=== PATIENT | male | born 1975 | race Caucasian/White ===

== ENCOUNTER 2018-03-05 08:48 | Emergency (ER) | payer OTHER, SELFPAY ==
[2018-03-05] VITALS (44 sets, daily range): BP systolic 117–145; BP diastolic 69–85; PULSE 49–75; RESP 9–32; TEMP 37; O2SAT 90–99
--- NOTE | 2018-03-05 09:14 | DI.RAD_ITS ---
SYMPTOM/DIAGNOSIS: NUMBNESS/TINGLING EXTREMITIES, R/O ACUTE DISEASE PA AND LATERAL CHEST: 03/05 The heart is normal in size. The lungs are clear. The mediastinal structures and pleura appear intact. CONCLUSION: Normal chest.
--- NOTE | 2018-03-05 09:14 | DI.CT_ITS ---
SYMPTOM/DIAGNOSIS: B/L HANDS/TOES TINGLING, R/O ACUTE CVA CRANIAL CT: NONCONTRAST 03/05 The previously described small right frontal lobe infarct again seen. The previously noted left posterior fossa, hemorrhage noted on previous examination is no longer present. Small lacunar infarct present on the right. No evidence of acute intracranial hemorrhage, mass effect or midline shift. CONCLUSION: No evidence of acute intracranial process.
--- NOTE | 2018-03-05 09:16 | W.ED.GENAD ---
Discharge Plan Disposition Patient Disposition: HOME Condition: Stable Discharge Details Chief Complaint: CVA/TIA Clinical Impression: Paresthesia Reason For Visit: LUKAS Primary Care Provider: Mariya Holm ED Provider: Maye Tenorio Home Meds and New Rx's Prescriptions: Continue aspirin 81 MG tablet,chewable 81 mg PO DAILY RF: 0 metoprolol tartrate 50 MG tablet 50 mg PO BID Qty: 180 RF: 5 lisinopril 40 MG tablet 40 mg PO DAILY Qty: 90 RF: 4 sertraline 25 MG tablet 25 mg PO DAILY Qty: 90 RF: 3 naphazoline-pheniramine [Naphcon-A] 15 ML drops 2 drp Ophthalmic TID Qty: 1 RF: 0 amlodipine 10 MG tablet 10 mg PO BID MDD 20 Qty: 90 RF: 4 atorvastatin 20 mg tablet 20 mg PO DAILY Qty: 90 RF: 3 omega-3 fatty acids-fish oil 1 EACH capsule 500 mg PO BID RF: 0 ibuprofen 600 MG tablet 600 mg PO Q6H PRN (Reason: Pain) Qty: 12 RF: 0 Discharge Instructions Instructions: Vertigo (ED), Paresthesia (ED) Additional Instructions: Follow-up with your scheduled appointment with neurology tomorrow afternoon. Return to the emergency department with any worsening or new concerning symptoms. Discharge Data Discharge Date/Time-TO BE ENTERED AT DEPARTURE: 03/05/18 14:54 Discharge Physician: Maye Tenorio Medical Decision Making 42-year-old male with a history of HTN and previous hemorrhagic stroke 2 years ago who presents to the ED with a complaint of bilateral hand and foot numbness and tingling for the past 3 weeks. Patient was seen at [facility] ED 2 days ago for same and had negative CT head was discharged home. He has follow-up appointment with neurologist Dr. Sukhwinder Moreira at [facility] tomorrow. He is here today mainly with concern for possible hemorrhagic stroke again. Vitals within normal limits. Nontoxic and in no acute distress. He has altered sensation to discriminate between sharp and dull in distal b/l upper and lower extremities but otherwise intact to light touch. No focal motor deficits. No cerebellar signs. As patient has already been seen 2 days ago at the ED for same complaint, symptoms have been present for 3 weeks, normal vitals, symptoms bilateral, no obvious focal motor deficits on exam, I am less concerned about an acute neurological process. Will obtain a CT head and labs to rule out electrolyte ab normality. Discussed with patient that the best plan would be for follow-up with neurology tomorrow for further evaluation and consideration for MRI. Differential diagnosis can include MS, vitamin deficiencies, other chronic diseases such as thyroid disease, hormonal imbalances. Patient states he had a previous MRI 2 years ago after his hemorrhagic stroke. 1025 -- CT head negative for acute findings. Does note prominence of basilar artery with calcification, and recommend CTA not emergently to evaluate for basilar artery aneurysm. Due to patient's current complaint, will obtain CTA head and neck. 1325 --CTA head and neck negative. Labs reviewed and note a potassium of 3, given potassium repletion. Remainder of labs unremarkable. Patient able to ambulate in room and feels good to go home. Patient instructed to follow-up with his scheduled appointment with neurology tomorrow afternoon for further evaluation and possible additional imaging such as MRI. Instructed to return here with any concerns. HPI General Mode of arrival: EMS. Date/Time Provider Initiated Documentation: 03/05/18 08:57. Limitations to Documentation: no limitations. Information obtained by: patient. Related Data Home Medications Medication Instructions Recorded Confirmed aspirin 81 mg PO DAILY tab-cap 02/02/16 03/05/18 omega-3 fatty acids-fish oil 500 mg PO BID 08/09/16 03/05/18 metoprolol tartrate 50 mg PO BID #180 tab-cap 09/22/16 03/05/18 ibuprofen 600 mg PO Q6H PRN #12 tablet 10/25/16 03/05/18 lisinopril 40 mg PO DAILY #90 tab 01/04/17 03/05/18 sertraline 25 mg PO DAILY #90 cap 09/05/17 03/05/18 naphazoline-pheniramine [Naphcon-A] 2 drp OPHTHALMIC TID #1 bottle 10/31/17 03/05/18 amlodipine 10 mg PO BID #90 tab-cap MDD 20 11/16/17 atorvastatin 20 mg tablet 20 mg PO DAILY #90 tab 01/31/18 03/05/18 Previous Rx's Medication Instructions Recorded ibuprofen 600 mg PO Q6H PRN #12 tablet 10/25/16 lisinopril 40 mg PO DAILY #90 tab 01/04/17 sertraline 25 mg PO DAILY #90 cap 09/05/17 naphazoline-pheniramine [Naphcon-A] 2 drp OPHTHALMIC TID #1 bottle 10/31/17 amlodipine 10 mg PO BID #90 tab-cap MDD 20 11/16/17 atorvastatin 20 mg tablet 20 mg PO DAILY #90 tab 01/31/18 Allergies Allergy/AdvReac Type Severity Reaction Status Date / Time No Known Allergies Allergy Unverified 03/05/18 08:56 General Stated Complaint: CVA/TIA EYAD: 2 Review of Systems Review of Systems All systems reviewed & are unremarkable except as noted in HPI and below Constitutional Denies chills, Denies excessive sweating, Denies fatigue, Denies fever(s), Denies headache(s), Denies weakness and Denies weight loss Eyes Reports system reviewed and no additional complaints, except as docu and Denies blurry vision ENT Denies vertigo, Denies dizziness, Denies otalgia, Denies headache(s), Denies nasal congestion, Denies sore throat and Denies throat swelling Cardiovascular Denies chest pain, Denies syncope, Denies rapid heart rate and Denies dyspnea Respiratory Denies dyspnea Gastrointestinal Denies abdominal pain, Denies diarrhea and Denies vomiting Genitourinary Denies hematuria, Denies dysuria and Denies flank pain Musculoskeletal Denies back pain, Denies joint swelling and Reports tingling Integumentary/Breasts Denies lesions and Denies rash Neurologic Reports abnormal speech, Denies behavioral changes, Denies confusion, Denies vertigo, Denies dizziness, Denies syncope, Denies headache(s), Denies focal weakness, Reports tingling, Reports paresthesias and Denies weakness Psychiatric Denies behavioral changes, Denies confusion and Denies depression Endocrine Denies excessive sweating and Denies fatigue Hematologic/Lymphatic Denies easy bruising and Denies lymphadenopathy Allergic/Immunologic Denies throat swelling [facility] Social History Smoking/Tobacco Use Status: Never Exam Const General: cooperative and healthy appearing Orientation: alert and awake HENMT Head: normal to inspection Ears: hearing grossly normal bilaterally, external ears normal and TM's normal bilaterally General nose exam: external nose normal Face and sinus: normal facial exam Mouth: oral mucosae normal Teeth and gingiva: dentition normal Eyes General: appearance normal, both eyes and all related structures Eyelids: eyelids normal Pupils: PERRL EOM: EOM intact bilaterally Neck Neck: normal visual inspection Lymphatic: no lymphadenopathy noted Chest Chest: normal inspection of the chest Resp Effort & Inspection: normal respiratory effort and able to speak in complete sentences Auscultation: clear to auscultation bilaterally Cardio Rate: regular rate Rhythm: regular rhythm GI Inspection: normal to inspection Palpation: soft, not firm, no guarding, no hepatosplenomegaly, no masses and nontender Auscultation: normal bowel sounds Back/Spine/Pelvis Thoracic/Lumbar Spine: thoracic and lumbar spine normal to inspection Skin General skin exam: no rashes or lesions noted Neuro General: alert, awake and oriented x3 Cognition: normal cognition Speech: speech normal Motor: muscle tone normal throughout, strength 5/5 throughout and no pronator drift Sensory Exam: other (Sensation normal to light touch but not able to distinguish between sharp and dull in fingers/toes. Able to distinguish between sharp and dull on remainder of hands/feet/legs/forearms. ) Extrem General: normal to inspection, full ROM, normal capillary refill, no clubbing, no cyanosis, no edema and other (b/l radial/ulnar pulses/DP/PT pulses intact. ) Psych Appearance: grossly normal Mental Status: mental status grossly normal Speech and Movement: speech and movement normal Affect: normal affect Thought Process: normal Course Vital Signs Temperature 98.6 F 03/05/18 08:49 Pulse 75 03/05/18 08:49 Respiratory Rate 19 03/05/18 08:49 Blood Pressure 132/74 03/05/18 08:49 Pulse Oximetry 98 03/05/18 08:49 Temperature 98.6 F 03/05/18 08:49 Temperature Source Temporal Artery Scan 03/05/18 08:49 Pulse 75 03/05/18 08:49 Respiratory Rate 19 03/05/18 08:49 Respiratory Effort Non-Labored 03/05/18 08:54 Blood Pressure 132/74 03/05/18 08:49 Pulse Oximetry 98 03/05/18 08:49 Oxygen Delivery Method Room Air 03/05/18 08:49 Oxygen Flow Rate 0 03/05/18 08:49 Pain Level 0 03/05/18 08:49
[2018-03-05 09:28] LABS: Abs Immature Grans 0.01 k/cumm (0.0-0.09); Absolute Basophil Count 0.02 k/cumm (0.0-0.2); Absolute Eosinophil Count 0.11 k/cumm (0.0-0.7); Absolute Lymphocyte Count 1.11 k/cumm (1.2-3.4); Absolute Monocyte Count 0.37 k/cumm (0.11-0.7); Absolute Neutrophil Count 5.02 k/cumm (1.2-6.7); Basophils % 0.3; Eosinophils % 1.7; HGB 14.8 g/dL (13.5-17.5); Immature Grans % 0.2; Lymphocytes % 16.7; Mean Corp. HGB Concentration 35.2 g/dL (32.0-36.0); Mean Corpuscular Hemoglobin 30.1 pg (27.0-33.0); Mean Corpuscular Volume 85.4 fL (80-95); Mean Platelet Volume 11.5 fL (8.0-11.0); Monocytes % 5.6; Neutrophils % 75.5; Platelet Count 152 x1000/uL (130-400); RBC 4.92 m/cumm (4.50-6.00); RBC Distribution Width 12.8 % (11.8-14.1); White Blood Cell Count 6.64 k/cumm (4.4-10.8)
[2018-03-05 09:41] LABS: INR 1.1 (1.0-3.5); PTT Activated 25.1 sec (21.0-31.4); Prothrombin Time 10.4 sec (9.3-10.8)
[2018-03-05 09:48] LABS: ALT 65 U/L (12-78); AST 38 U/L (15-37); Albumin 4.3 g/dL (3.4-5.0); Alkaline Phosphatase 114 U/L (46-116); Anion Gap 11.1 mmol/L (3-11); BUN 17 mg/dL (7-18); CO2 27.9 mmol/L (21.0-32.0); Chloride 105 mmol/L (98-107); Glucose 134 mg/dL (70-100); Sodium 144 mmol/L (136-145); Total Protein 7.7 g/dL (6.4-8.2); Troponin I < 0.02 ng/mL (0.00-0.06)
--- NOTE | 2018-03-05 10:24 | DI.VRAD_ITS ---
EXAM: CT Head Without Intravenous Contrast EXAM DATE/TIME: 03/05/2018 9:16 AM CLINICAL HISTORY: 42 years old, male; Signs and symptoms; Other: B/l hands and toes tingling, R/O acute CVA; Patient HX: HX stroke 2yrs ago TECHNIQUE: Axial computed tomography images of the head/brain without intravenous contrast. Coronal and sagittal reformatted images were created and reviewed. COMPARISON: CT HEAD WITHOUT STROKE PROTOCOL 08/09/2016 12:58 PM FINDINGS: Brain: No acute intracranial hemorrhage. Minimal encephalomalacia in the right frontal region was present on the prior study and may reflect a prior infarction. Ventricles: Normal. No ventriculomegaly. Bones/joints: Normal. No acute fracture. Sinuses: Normal as visualized. No acute sinusitis. Mastoid air cells: Normal as visualized. No mastoid effusion. Soft tissues: Normal. Vasculature: Basilar artery is prominent measuring 5.6 mm and contains a calcification. This was present previously; recommend CTA non-emergently to evaluate for basilar artery aneurysm if clinically indicated.. IMPRESSION: 1. No acute intracranial hemorrhage. 2. Minimal encephalomalacia in the right frontal region was present on the prior study and may reflect a prior infarction. 3. Aspect score 10 4. Basilar artery is prominent measuring 5.6 mm and contains a calcification. This was present previously; recommend CTA non-emergently to evaluate for basilar artery aneurysm if clinically indicated Dictated and Authenticated by: Sarah Correa MD. Ordering:RACHEL CAMERON MD
--- NOTE | 2018-03-05 10:29 | DI.CT_ITS ---
SYMPTOM/DIAGNOSIS: BASILAR ARTERY CALCIFICATION, ASSESS FOR ANEURYSM CT ANGIOGRAPHY, CRANIOCERVICAL : 03/05 CT angiography was performed with multi slice acquisition and multi planar and 3D reconstruction. CT angiography of the craniocervical region was performed. 100 cc Omnipaque 350 was injected intravenously. The visualized lung apices are clear and tracheolaryngeal structures appear intact. No cervical mass or adenopathy is seen. No superior mediastinal mass or adenopathy. No intracranial mass lesion or enhancing lesion identified. Orbital and temporal bone structures appear intact. Aortic arch and major branches appear intact. Common internal and external carotid arteries are unremarkable in appearance bilaterally in their extracranial extent. Vertebral arteries appear intact and there are extracranial extent with right dominant vertebral circulation. Basal artery appears normal with no evidence of aneurysm. Intracranial internal carotid arteries appear normal with no evidence of dissection or aneurysm. Anterior cerebral arteries, middle cerebral arteries and posterior cerebral arteries and major branches appear intact bilaterally. CONCLUSION: Negative CT angiography, craniocervical.
--- NOTE | 2018-03-05 10:33 | DI.VRAD_ITS ---
EXAM: XR Chest, 2 Views EXAM DATE/TIME: 03/05/2018 9:16 AM CLINICAL HISTORY: 42 years old, male; Signs and symptoms; Other: Numbness/tingling extremities, R/O acute disease TECHNIQUE: XR of the chest, 2 views. COMPARISON: CR CHEST 2 VIEWS PA,LAT 07/16/2017 3:31 PM FINDINGS: Lungs: Unremarkable. No consolidation. Pleural space: Unremarkable. No pleural effusion. No pneumothorax. Heart/Mediastinum: Unremarkable. No cardiomegaly. Bones/joints: Unremarkable. IMPRESSION: No acute findings. Dictated and Authenticated by: Sarah Correa MD. Ordering:RACHEL CAMERON MD
[2018-03-05] MEDS: Potassium Chloride 20 MEQ TABCR 40 MEQ PO (12:05)
--- NOTE | 2018-03-05 13:00 | DI.VRAD_ITS ---
EXAM: CT Angiography Head With Intravenous Contrast EXAM DATE/TIME: 03/05/2018 10:30 AM CLINICAL HISTORY: 42 years old, male; Signs and symptoms; Other: Basilar artery calcifcation /asses for aneurysm; Patient HX: Past stroke TECHNIQUE: Axial computed tomographic angiography images of the head with intravenous contrast using CT angiography protocol. All CT scans at this facility use at least one of these dose optimization techniques: automated exposure control; mA and/or kV adjustment per patient size (includes targeted exams where dose is matched to clinical indication); or iterative reconstruction. MIP reconstructed images were created and reviewed. COMPARISON: Noncontrast CT head 03/05/2018. CTA BRAIN AND NECK 10/20/2015. FINDINGS: Right internal carotid artery: Unremarkable. Intracranial segment is patent with no significant stenosis. No aneurysm. Right anterior cerebral artery: Unremarkable. No occlusion or significant stenosis. No aneurysm. Right middle cerebral artery: Unremarkable. No occlusion or significant stenosis. No aneurysm. Right posterior cerebral artery: Unremarkable. No occlusion or significant stenosis. No aneurysm. Right vertebral artery: Intracranial right vertebral artery is dominant in size with calcification, but no stenosis. No dissection or occlusion. Left internal carotid artery: Unremarkable. Intracranial segment is patent with no significant stenosis. No aneurysm. Left anterior cerebral artery: Unremarkable. No occlusion or significant stenosis. No aneurysm. Left middle cerebral artery: Unremarkable. No occlusion or significant stenosis. No aneurysm. Left posterior cerebral artery: Unremarkable. No occlusion or significant stenosis. No aneurysm. Left vertebral artery: Intracranial left vertebral artery is diminutive in size, but patent and joins with the left vertebral artery to form the basilar artery. No dissection or occlusion. Basilar artery: Basilar artery is normal in size and patent. No stenosis. No aneurysm. HEAD: Left CP angle mass previously seen on the comparison 10/20/2015 exam is not visible on the current exam. IMPRESSION: 1. Negative CTA head exam. 2. No aneurysm. EXAM: CT Angiography Neck With Intravenous Contrast EXAM DATE/TIME: 03/05/2018 10:30 AM CLINICAL HISTORY: 42 years old, male; Signs and symptoms; Other: Basilar artery calcifcation /asses for aneurysm; Patient HX: Past stroke TECHNIQUE: Axial computed tomographic angiography images of the neck with intravenous contrast using CT angiography protocol. All CT scans at this facility use at least one of these dose optimization techniques: automated exposure control; mA and/or kV adjustment per patient size (includes targeted exams where dose is matched to clinical indication); or iterative reconstruction. MIP reconstructed images were created and reviewed. CONTRAST: 100 ml of ominpaque administered intravenously. COMPARISON: CTA BRAIN AND NECK 10/20/2015 3:36 AM FINDINGS: VASCULATURE: Right common carotid artery: Unremarkable. No significant stenosis. No dissection or occlusion. Right internal carotid artery: Unremarkable. Extracranial segment is patent with no significant stenosis. No dissection or occlusion. Right external carotid artery: Unremarkable. No occlusion or significant stenosis. Right vertebral artery: Normal variant dominant right vertebral artery. Left common carotid artery: Unremarkable. No significant stenosis. No dissection or occlusion. Left internal carotid artery: Unremarkable. Extracranial segment is patent with no significant stenosis. No dissection or occlusion. Left external carotid artery: Unremarkable. No occlusion or significant stenosis. Left vertebral artery: Congenitally diffuse small vertebral artery. No significant stenosis. No dissection or occlusion. NECK: Bones/joints: No acute fracture. Soft tissues: Normal. No significant soft tissue swelling. IMPRESSION: Negative CTA neck exam. COMMENT: Degree of carotid stenosis was determined using NASCET criteria: Mild: <50% stenosis. Moderate: 50-69% stenosis. Severe: 70-94% stenosis. Near occlusion: 95-99% stenosis. Dictated and Authenticated by: Tabitha Bacon MD. Ordering:RACHEL CAMERON MD
[2018-03-05] MEDS: Omnipaque 350 MG/ML 100 ML BTL IJ (13:34)
== END 2018-03-05 14:54 | disposition home or self-care (01) ==
PROVIDERS: Emergency Provider Physician Assistant; PCP Internal Medicine
DX: R20.2 Paresthesia of skin (principal); E87.6 Hypokalemia; I10 Essential (primary) hypertension
CPT/HCPCS: 36415; 70496; 70498; 80053; 93005; 99285; 70450; 71046; 83735; 84484; 85025; 85610; 85730; 93010; 99284; J3490

== ENCOUNTER 2018-05-01 11:41 | Outpatient (CLI) | payer OTHER, SELFPAY ==
[2018-05-01 13:03] LABS: Abs Immature Grans 0.03 k/cumm (0.0-0.09); Absolute Basophil Count 0.03 k/cumm (0.0-0.2); Absolute Eosinophil Count 0.13 k/cumm (0.0-0.7); Absolute Lymphocyte Count 1.33 k/cumm (1.2-3.4); Absolute Neutrophil Count 4.87 k/cumm (1.2-6.7); Basophils % 0.4; Eosinophils % 1.9; HCT 43.2 % (40.0-50.0); HGB 14.9 g/dL (13.5-17.5); Immature Grans % 0.4; Lymphocytes % 19.6; Mean Corp. HGB Concentration 34.5 g/dL (32.0-36.0); Mean Corpuscular Hemoglobin 29.9 pg (27.0-33.0); Mean Corpuscular Volume 86.7 fL (80-95); Mean Platelet Volume 11.1 fL (8.0-11.0); Monocytes % 5.9; Neutrophils % 71.8; Platelet Count 168 x1000/uL (130-400); RBC 4.98 m/cumm (4.50-6.00); RBC Distribution Width 13.5 % (11.8-14.1); White Blood Cell Count 6.79 k/cumm (4.4-10.8)
[2018-05-01 13:27] LABS: ALT 59 U/L (12-78); AST 54 U/L (15-37); Albumin 4.4 g/dL (3.4-5.0); Alkaline Phosphatase 133 U/L (46-116); Anion Gap 8.1 mmol/L (3-11); BUN 19 mg/dL (7-18); Bilirubin, Total 0.7 mg/dL (0.2-1.0); CO2 30.9 mmol/L (21.0-32.0); CREATININE 1.23 mg/dL (0.70-1.30); Calcium 9.9 mg/dL (8.5-10.1); Chloride 106 mmol/L (98-107); Glucose 110 mg/dL (70-100); Potassium 3.8 mmol/L (3.5-5.1); Sodium 145 mmol/L (136-145); Total Protein 7.6 g/dL (6.4-8.2)
[2018-05-01 13:33] LABS: Hemoglobin A1C 5.6 % (4.5-6.2)
== END 2018-05-01 12:01 ==
PROVIDERS: PCP Internal Medicine; Visit Provider Internal Medicine
DX: I10 Essential (primary) hypertension (principal)
CPT/HCPCS: 36415; 80053; 83036; 85025

== ENCOUNTER 2018-10-18 19:26 | Emergency (ER) | payer OTHER, SELFPAY ==
[2018-10-18 19:35] VITALS: BP 160/68; PULSE 106; RESP 18; TEMP 38.7; O2SAT 96
--- NOTE | 2018-10-18 20:00 | ED.GENADUL_ITS ---
Discharge Plan Disposition Patient Disposition: HOME Condition: Improving Discharge Details Chief Complaint: Cellulitis Clinical Impression: Cellulitis of left lower leg Primary Care Provider: Mariya Holm ED Provider: Drake Flood Home Meds and New Rx's Prescriptions: New cephalexin 500 mg tablet 500 mg PO QID 7 Days Qty: 28 RF: 0 potassium chloride 20 mEq tablet extended release 20 meq PO DAILY Qty: 4 RF: 0 Continued sertraline 100 mg tablet 100 mg PO DAILY RF: 0 lamotrigine 100 mg tablet 100 mg PO DAILY RF: 0 aspirin 81 MG tablet,chewable 81 mg PO DAILY RF: 0 Naphcon-A 15 ML drops 2 drp Ophthalmic TID Qty: 1 RF: 0 atorvastatin 20 mg tablet 20 mg PO DAILY Qty: 90 RF: 3 lisinopril 40 mg tablet 40 mg PO DAILY Qty: 90 RF: 4 amlodipine 10 mg tablet 10 mg PO BID MDD 20 Qty: 90 RF: 4 metoprolol tartrate 50 mg tablet 50 mg PO BID Qty: 180 RF: 3 omega-3 fatty acids-fish oil 1 EACH capsule 500 mg PO BID RF: 0 ibuprofen 600 MG tablet 600 mg PO Q6H PRN (Reason: Pain) Qty: 12 RF: 0 Discharge Instructions Instructions: Cellulitis (ED) Additional Instructions: Please start your antibiotic and take your first dose at midnight. You may start your potassium tomorrow. It is important that you return tomorrow afternoon for recheck of your skin infection. You should return immediately to the emergency department if you have any new or worsening symptoms overnight or any further concerns. For your fever you may continue to take acetaminophen as needed. Referrals: [facility] Emergency Dept. [Outside] - 1 day Medical Decision Making Patient presenting to the emergency department for chief complaint of fever and chills. Patient states that he developed fever and chills last night and then this morning noticed redness to his left lower leg. He does state some abrasions to the leg but made nothing of them because they were very superficial. Physical exam shows erythema and ecchymosis to the left anterior waters, mild tachycardia, otherwise unremarkable physical exam. Vital signs do show patient is febrile, tachycardic, but not hypotensive no hypoxia no tachypnea. Plan to give IV fluids, ketorolac, check labs including blood culture and lactate. Concern for lower extremity cellulitis so as soon as blood cultures are drawn order for Ancef was placed. Labs are reviewed and lactate was 1.02 non-worrisome, mild leukocytosis with WBCs of 11.86, CMP reviewed and showed mild decrease of GFR but not uncommon for patient, hypokalemia at 2.9 but again patient has history of low potassium, otherwise nondiagnostic CMP. Patient's bilirubin slightly elevated at 1.4 but denies any abdominal pain, nausea vomiting. Patient given IV potassium. Patient reassessed and is no longer febrile, tachycardic. Patient has no history of diabetes and sugars are appropriate for nonfasting glucose. Given that patient is improving, no longer tachycardic, and what I would consider a moderate cellulitis of the left lower extremity I do feel that patient can be safely discharged but given that he was tachycardic febrile with infection I do feel the patient should have close follow-up. Patient was in agreement with this plan and I do feel that given reassuring labs this is also okay. Patient was placed upon Keflex and informed to return to emergency department tomorrow for recheck. Skin marker was used by nursing staff to marked out area of concern. HPI General Mode of arrival: ambulatory . Date/Time Provider Initiated Documentation: 10/18/18 19:26 . Limitations to Documentation: no limitations . Information obtained by: patient and RN notes reviewed . History of Present Illness 43 year old M presents to the emergency department with the chief complaint of Fever, left leg rash, described as moderate, with intensity rated at 8. Quality is described as aching, and is localized to the left and lower extremity. Patient started experiencing this day(s) (1) and it has been constant. No relieving factors improve symptom(s), Patient notes no other symptoms.. Patient did receive the following treatments prior to arrival, none Related Data Home Medications Medication Instructions Recorded Confirmed aspirin 81 mg PO DAILY tab-cap 02/02/16 10/18/18 omega-3 fatty acids-fish oil 500 mg PO BID 08/09/16 10/18/18 ibuprofen 600 mg PO Q6H PRN #12 tab 10/25/16 10/18/18 Naphcon-A 2 drp OPHTHALMIC TID #1 bottle 10/31/17 10/18/18 atorvastatin 20 mg tablet 20 mg PO DAILY #90 tab 01/31/18 10/18/18 lisinopril 40 mg tablet 40 mg PO DAILY #90 tab 03/29/18 10/18/18 lamotrigine 100 mg tablet 100 mg PO DAILY 05/01/18 10/18/18 sertraline 100 mg tablet 100 mg PO DAILY 05/01/18 10/18/18 amlodipine 10 mg tablet 10 mg PO BID #90 tab-cap MDD 20 07/11/18 10/18/18 metoprolol tartrate 50 mg tablet 50 mg PO BID #180 tab-cap 09/25/18 10/18/18 cephalexin 500 mg PO QID 7 Days #28 tab 10/18/18 potassium chloride 20 meq PO DAILY #4 tab 10/18/18 Previous Rx's Medication Instructions Recorded ibuprofen 600 mg PO Q6H PRN #12 tab 10/25/16 Naphcon-A 2 drp OPHTHALMIC TID #1 bottle 10/31/17 atorvastatin 20 mg tablet 20 mg PO DAILY #90 tab 01/31/18 lisinopril 40 mg tablet 40 mg PO DAILY #90 tab 03/29/18 amlodipine 10 mg tablet 10 mg PO BID #90 tab-cap MDD 20 07/11/18 metoprolol tartrate 50 mg tablet 50 mg PO BID #180 tab-cap 09/25/18 cephalexin 500 mg PO QID 7 Days #28 tab 10/18/18 potassium chloride 20 meq PO DAILY #4 tab 10/18/18 Allergies Allergy/AdvReac Type Severity Reaction Status Date / Time No Known Allergies Allergy Unverified 05/01/18 10:57 General Stated Complaint: Cellulitis EYAD: 3 Review of Systems Constitutional Reports chills, Reports fever(s) and Reports malaise Cardiovascular Denies chest pain Respiratory Denies cough Gastrointestinal Denies abdominal pain, Denies nausea and Denies vomiting Musculoskeletal Denies joint swelling Integumentary/Breasts Reports as per HPI, Reports erythema and Reports skin swelling PFSH Family History Mother Hyperlipidemia Father No problems noted. Sister No problems noted. Son Depression Social History Smoking/Tobacco Use Status: Never Alcohol Intake: never Drug use: Never Substance use type: does not use Household members: family Housing: house Pets and animals: Yes Pets and animals: dog(s) Sexually active: No Do you think of yourself as: straight/heterosexual Duration: < 15 minutes/day Frequency: 1-2 times per week Opal/Jew: No preference Special opal needs: No Do you feel safe in your relationship?: Yes Exam Const General: cooperative, no acute distress and not ill appearing Orientation: alert, awake and oriented x3 HENMT Mouth: moist mucous membranes Resp Effort & Inspection: normal respiratory effort, able to speak in complete sentences and no respiratory distress Cardio Rate: regular rate and tachycardic Rhythm: regular rhythm Heart Sounds: S1 normal, S2 normal, no click, no gallops, no murmurs and no rubs Skin General skin exam: no rashes or lesions noted Extrem Left lower extremity: lower leg Details: erythema Location: of the mid lower leg Location: anteromedially and anterolaterally, tenderness Location: of the midshaft tibia and pitting edema Details: 1+ Course Vital Signs Temperature 38.7 C H 10/18/18 19:35 Pulse 106 H 10/18/18 19:35 Respiratory Rate 18 10/18/18 19:35 Blood Pressure 160/68 H 10/18/18 19:35 Pulse Oximetry 96 10/18/18 19:35 Temperature 38.7 C H 10/18/18 19:35 Temperature Source Temporal Artery Scan 10/18/18 19:35 Pulse 106 H 10/18/18 19:35 Respiratory Rate 18 10/18/18 19:35 Respiratory Effort 10/18/18 19:38 Blood Pressure 160/68 H 10/18/18 19:35 Pulse Oximetry 96 10/18/18 19:35 Oxygen Delivery Method Room Air 10/18/18 19:35 Oxygen Flow Rate 0 10/18/18 19:35 Pain Level 8 10/18/18 19:35 Lab/Test Results Lab/Test Results: 10/18/18 19:46 Blood Blood Culture - Pending 10/18/18 19:46 Blood Blood Culture - Pending
[2018-10-18] MEDS: Normal Saline 1,000 ML 1000 ML IV (20:18)
[2018-10-18 20:25] LABS: Abs Immature Grans 0.03 k/cumm (0.0-0.09); Absolute Basophil Count 0.02 k/cumm (0.0-0.2); Absolute Eosinophil Count 0.02 k/cumm (0.0-0.7); Absolute Lymphocyte Count 1.07 k/cumm (1.2-3.4); Basophils % 0.2; Eosinophils % 0.2; HCT 39.4 % (40.0-50.0); HGB 13.9 g/dL (13.5-17.5); Immature Grans % 0.3; Mean Corp. HGB Concentration 35.3 g/dL (32.0-36.0); Mean Corpuscular Hemoglobin 30.2 pg (27.0-33.0); Mean Corpuscular Volume 85.5 fL (80-95); Mean Platelet Volume 10.8 fL (8.0-11.0); Monocytes % 7.8; Neutrophils % 82.5; Platelet Count 129 x1000/uL (130-400); RBC 4.61 m/cumm (4.50-6.00); RBC Distribution Width 13.4 % (11.8-14.1); White Blood Cell Count 11.86 k/cumm (4.4-10.8)
[2018-10-18 20:27] LABS: Absolute Monocyte Count 0.93 k/cumm (0.11-0.7); Absolute Neutrophil Count 9.78 k/cumm (1.2-6.7)
[2018-10-18] MEDS: Ketorolac 30 MG/ML VIAL IVP (20:28)
[2018-10-18 20:38] LABS: ALT 34 U/L (12-78); AST 33 U/L (15-37); Albumin 3.9 g/dL (3.4-5.0); Alkaline Phosphatase 127 U/L (46-116); Anion Gap 9.1 mmol/L (3-11); BUN 14 mg/dL (7-18); Bilirubin, Total 1.4 mg/dL (0.2-1.0); CO2 27.9 mmol/L (21.0-32.0); Calcium 9.2 mg/dL (8.5-10.1); Chloride 103 mmol/L (98-107); Estimated GFR 50.84 (mL/min/1.73m2); Glucose 124 mg/dL (70-100); Sodium 140 mmol/L (136-145); Total Protein 7.4 g/dL (6.4-8.2)
[2018-10-18 20:40] LABS: Potassium 2.9 mmol/L (3.5-5.1)
--- NOTE | 2018-10-18 20:43 | DI.RAD_ITS ---
SYMPTOM/DIAGNOSIS: FEVER, LEFT LEG INFECTION LEFT TIBIA AND FIBULA: There is no evidence of fracture or bony erosions. There is an area of cortical thickening of the diaphysis of the mid tibia anterolaterally. The findings could be related to old trauma. Clinical correlation is recommended.
--- NOTE | 2018-10-18 21:00 | DI.VRAD_ITS ---
EXAM: XR Left Tibia and Fibula EXAM DATE/TIME: 10/18/2018 8:05 PM CLINICAL HISTORY: 43 years old, male; Cellulitis; Lower leg; Left TECHNIQUE: Imaging protocol: XR Left tibia and fibula. Views: 2 views. COMPARISON: No relevant prior studies available. FINDINGS: Bones/joints: There is no acute fracture or dislocation. There is smooth periosteal reaction along the lateral aspect of the mid tibial diaphysis. Soft tissues: There is no radiopaque foreign body.There is no gas in the soft tissue. IMPRESSION: No evidence of soft tissue abscess or acute osteomyelitis. If symptoms persist a followup study is suggested in one month to evaluate the periosteal reaction along the tibia. Dictated and Authenticated by: Sean Cool MD. Ordering:ROEL Juan MD
[2018-10-18] MEDS: POTASSIUM CHLORIDE 10 MEQ/100 ML BAG 100 MEQ IVPB (21:20)
[2018-10-18 22:11] VITALS: BP 116/66; PULSE 90; RESP 16; TEMP 37; O2SAT 94
[2018-10-18] MEDS: Potassium Chloride 20 MEQ TABCR 40 MEQ PO (22:45)
[2018-10-18] MEDS: Cephalexin 500 MG CAP 1500 MG PO (22:45)
== END 2018-10-18 23:02 | disposition home or self-care (01) ==
PROVIDERS: Emergency Provider Nurse Practitioner Family; PCP Internal Medicine
DX: L03.116 Cellulitis of left lower limb (principal); D72.9 Disorder of white blood cells, unspecified
CPT/HCPCS: 36415; 80053; 87040; 96365; 96367; 96375; 99284; 73590; 83605; 85025; J0690; J1885; J3480

== ENCOUNTER 2018-10-19 14:40 | Emergency (ER) | payer OTHER, SELFPAY ==
[2018-10-19 14:43] VITALS: BP 130/72; PULSE 77; RESP 15; TEMP 37.3; O2SAT 95
--- NOTE | 2018-10-19 14:53 | W.ED.GENAD ---
Discharge Plan Disposition Patient Disposition: HOME Condition: Improving Discharge Details Chief Complaint: Recheck Clinical Impression: Cellulitis Primary Care Provider: Mariya Holm ED Provider: Kasie Mendez Home Meds and New Rx's Prescriptions: Continued sertraline 100 mg tablet 100 mg PO DAILY RF: 0 lamotrigine 100 mg tablet 100 mg PO DAILY RF: 0 aspirin 81 MG tablet,chewable 81 mg PO DAILY RF: 0 Naphcon-A 15 ML drops 2 drp Ophthalmic TID Qty: 1 RF: 0 atorvastatin 20 mg tablet 20 mg PO DAILY Qty: 90 RF: 3 lisinopril 40 mg tablet 40 mg PO DAILY Qty: 90 RF: 4 amlodipine 10 mg tablet 10 mg PO BID MDD 20 Qty: 90 RF: 4 metoprolol tartrate 50 mg tablet 50 mg PO BID Qty: 180 RF: 3 omega-3 fatty acids-fish oil 1 EACH capsule 500 mg PO BID RF: 0 ibuprofen 600 MG tablet 600 mg PO Q6H PRN (Reason: Pain) Qty: 12 RF: 0 cephalexin 500 mg tablet 500 mg PO QID 7 Days Qty: 28 RF: 0 potassium chloride 20 mEq tablet extended release 20 meq PO DAILY Qty: 4 RF: 0 Discharge Instructions Instructions: Cellulitis (ED) Additional Instructions: Continue to encourage hydration. Please continue Keflex as prescribed. Please call primary care tomorrow and schedule follow-up appointment on Tuesday. Please try to elevate your extremity as much as possible. Tylenol and/or ibuprofen as needed for discomfort. If you develop recurrence of your fevers, worsening of the redness, increased pain or other new/worsening symptoms please seek care urgently again. Stand Alone Forms: Work Release Referrals: Mariya Holm MD [Primary Care Provider] - Medical Decision Making Patient is a 43-year-old male presenting today with chief complaint of reevaluation of cellulitis. Patient was seen here yesterday and started on Keflex for left lower extremity cellulitis. This is demarcated yesterday. Cellulitis today appears much improved. Patient remained afebrile since being evaluated yesterday. He is tolerating the Keflex well. States overall he is feeling much improved. Vital signs within normal limits. Advised to continue with the Keflex. He is given strict return precautions. He will contact primary care tomorrow to schedule follow-up appointment. Work note was given. All his questions and concerns were addressed and he is in agreement this plan HPI General Mode of arrival: ambulatory. Date/Time Provider Initiated Documentation: 10/19/18 14:51. Limitations to Documentation: no limitations. Information obtained by: patient, family (accompanied by mother) and RN notes reviewed. History of Present Illness 43 year old M presents to the emergency department with the chief complaint of LLE cellulitis recheck, described as moderate, with intensity rated at 5. Quality is described as aching, and is localized to the left and lower extremity. Patient reports no radiation. Patient started experiencing this day(s) and it has been constant (improving). No relieving factors improve symptom(s), No exacerbating factors reported . Patient notes rash; denies chest pain, diaphoresis, fever/chills, malaise, nausea/vomiting and weakness. Patient did receive the following treatments prior to arrival, other (bagan Keflex yesterday) Related Data Home Medications Medication Instructions Recorded Confirmed aspirin 81 mg PO DAILY tab-cap 02/02/16 10/19/18 omega-3 fatty acids-fish oil 500 mg PO BID 08/09/16 10/19/18 ibuprofen 600 mg PO Q6H PRN #12 tab 10/25/16 10/19/18 Naphcon-A 2 drp OPHTHALMIC TID #1 bottle 10/31/17 10/19/18 atorvastatin 20 mg tablet 20 mg PO DAILY #90 tab 01/31/18 10/19/18 lisinopril 40 mg tablet 40 mg PO DAILY #90 tab 03/29/18 10/19/18 lamotrigine 100 mg tablet 100 mg PO DAILY 05/01/18 10/19/18 sertraline 100 mg tablet 100 mg PO DAILY 05/01/18 10/19/18 amlodipine 10 mg tablet 10 mg PO BID #90 tab-cap MDD 20 07/11/18 10/19/18 metoprolol tartrate 50 mg tablet 50 mg PO BID #180 tab-cap 09/25/18 10/19/18 cephalexin 500 mg PO QID 7 Days #28 tab 10/18/18 10/19/18 potassium chloride 20 meq PO DAILY #4 tab 10/18/18 10/19/18 Previous Rx's Medication Instructions Recorded ibuprofen 600 mg PO Q6H PRN #12 tab 10/25/16 Naphcon-A 2 drp OPHTHALMIC TID #1 bottle 10/31/17 atorvastatin 20 mg tablet 20 mg PO DAILY #90 tab 01/31/18 lisinopril 40 mg tablet 40 mg PO DAILY #90 tab 03/29/18 amlodipine 10 mg tablet 10 mg PO BID #90 tab-cap MDD 20 07/11/18 metoprolol tartrate 50 mg tablet 50 mg PO BID #180 tab-cap 09/25/18 cephalexin 500 mg PO QID 7 Days #28 tab 10/18/18 potassium chloride 20 meq PO DAILY #4 tab 10/18/18 Allergies Allergy/AdvReac Type Severity Reaction Status Date / Time No Known Allergies Allergy Unverified 10/19/18 14:48 General Stated Complaint: Recheck EYAD: 5 Review of Systems Constitutional Reports as per HPI, Denies chills, Denies fever(s), Denies headache(s) and Denies weakness ENT Denies headache(s) Cardiovascular Reports as per HPI and Denies chest pain Respiratory Reports as per HPI and Denies cough Musculoskeletal Reports as per HPI and Denies tingling Integumentary/Breasts Reports as per HPI and Reports erythema (known cellulitis LLE) Neurologic Reports as per HPI, Denies headache(s), Denies tingling, Denies paresthesias and Denies weakness [facility] Social History Smoking/Tobacco Use Status: Never Alcohol Intake: never Drug use: Never Substance use type: does not use Household members: family Housing: house Pets and animals: Yes Pets and animals: dog(s) Sexually active: No Do you think of yourself as: straight/heterosexual Duration: < 15 minutes/day Frequency: 1-2 times per week Opal/Orthodoxy: No preference Special opal needs: No Do you feel safe at home: Yes Do you feel safe in your relationship?: Yes Exam Const General: cooperative, healthy appearing, comfortable, no acute distress, well developed and well groomed Nutritional Appearance: well nourished and overweight Orientation: alert and awake Resp Effort & Inspection: normal respiratory effort, able to speak in complete sentences and no respiratory distress Cardio Rate: regular rate Rhythm: regular rhythm Skin General skin exam: erythema (LLE, significantly reduced from marking placed yesterday) Neuro General: alert and awake Cognition: normal cognition Speech: speech normal Gait: normal gait Motor: muscle tone normal throughout Sensory Exam: no sensory deficits noted Extrem General: abnormal to inspection (erythema as above), full ROM, normal capillary refill and no joint enlargement Left lower extremity: full ROM, normal capillary refill and lower leg Details: erythema Location: of the proximal lower leg; no tenderness, no localized swelling, no palpable cords and no pitting edema Psych Appearance: grossly normal and well kempt Mental Status: mental status grossly normal Speech and Movement: speech and movement normal Course Vital Signs Temperature 37.3 C 10/19/18 14:43 Pulse 77 10/19/18 14:43 Respiratory Rate 15 10/19/18 14:43 Blood Pressure 130/72 10/19/18 14:43 Pulse Oximetry 95 10/19/18 14:43 Temperature 37.3 C 10/19/18 14:43 Temperature Source Oral 10/19/18 14:43 Pulse 77 10/19/18 14:43 Respiratory Rate 15 10/19/18 14:43 Respiratory Effort Non-Labored 10/19/18 14:47 Blood Pressure 130/72 10/19/18 14:43 Blood Pressure Position Sitting 10/19/18 14:43 Pulse Oximetry 95 10/19/18 14:43 Oxygen Delivery Method Room Air 10/19/18 14:43 Oxygen Flow Rate 0 10/19/18 14:43 Pain Level 5 10/19/18 14:43
--- NOTE | 2018-10-19 15:06 | ED.GENADUL_ITS ---
Discharge Plan Disposition Patient Disposition: HOME Condition: Improving Discharge Details Chief Complaint: Recheck Clinical Impression: Cellulitis Primary Care Provider: Mariya Holm ED Provider: Kasie Mendez Home Meds and New Rx's Prescriptions: Continued sertraline 100 mg tablet 100 mg PO DAILY RF: 0 lamotrigine 100 mg tablet 100 mg PO DAILY RF: 0 aspirin 81 MG tablet,chewable 81 mg PO DAILY RF: 0 Naphcon-A 15 ML drops 2 drp Ophthalmic TID Qty: 1 RF: 0 atorvastatin 20 mg tablet 20 mg PO DAILY Qty: 90 RF: 3 lisinopril 40 mg tablet 40 mg PO DAILY Qty: 90 RF: 4 amlodipine 10 mg tablet 10 mg PO BID MDD 20 Qty: 90 RF: 4 metoprolol tartrate 50 mg tablet 50 mg PO BID Qty: 180 RF: 3 omega-3 fatty acids-fish oil 1 EACH capsule 500 mg PO BID RF: 0 ibuprofen 600 MG tablet 600 mg PO Q6H PRN (Reason: Pain) Qty: 12 RF: 0 cephalexin 500 mg tablet 500 mg PO QID 7 Days Qty: 28 RF: 0 potassium chloride 20 mEq tablet extended release 20 meq PO DAILY Qty: 4 RF: 0 Discharge Instructions Instructions: Cellulitis (ED) Additional Instructions: Continue to encourage hydration. Please continue Keflex as prescribed. Please call primary care tomorrow and schedule follow-up appointment on Tuesday. Please try to elevate your extremity as much as possible. Tylenol and/or ibuprofen as needed for discomfort. If you develop recurrence of your fevers, worsening of the redness, increased pain or other new/worsening symptoms please seek care urgently again. Stand Alone Forms: Work Release Referrals: Mariya Holm MD [Primary Care Provider] - Medical Decision Making Patient is a 43-year-old male presenting today with chief complaint of ree valuation of cellulitis. Patient was seen here yesterday and started on Keflex for left lower extremity cellulitis. This is demarcated yesterday. Cellulitis today appears much improved. Patient remained afebrile since being evaluated yesterday. He is tolerating the Keflex well. States overall he is feeling much improved. Vital signs within normal limits. Advised to continue with the Keflex. He is given strict return precautions. He will contact primary care tomorrow to schedule follow-up appointment. Work note was given. All his questions and concerns were addressed and he is in agreement this plan HPI General Mode of arrival: ambulatory . Date/Time Provider Initiated Documentation: 10/19/18 14:51 . Limitations to Documentation: no limitations . Information obtained by: patient, family (accompanied by mother) and RN notes reviewed . History of Present Illness 43 year old M presents to the emergency department with the chief complaint of LLE cellulitis recheck, described as moderate, with intensity rated at 5. Quality is described as aching, and is localized to the left and lower extremity. Patient reports no radiation. Patient started experiencing this day(s) and it has been constant (improving). No relieving factors improve symptom(s), No exacerbating factors reported . Patient notes rash; denies chest pain, diaphoresis, fever/chills, malaise, nausea/vomiting and weakness. Patient did receive the following treatments prior to arrival, other (bagan Keflex yesterday) Related Data Home Medications Medication Instructions Recorded Confirmed aspirin 81 mg PO DAILY tab-cap 02/02/16 10/19/18 omega-3 fatty acids-fish oil 500 mg PO BID 08/09/16 10/19/18 ibuprofen 600 mg PO Q6H PRN #12 tab 10/25/16 10/19/18 Naphcon-A 2 drp OPHTHALMIC TID #1 bottle 10/31/17 10/19/18 atorvastatin 20 mg tablet 20 mg PO DAILY #90 tab 01/31/18 10/19/18 lisinopril 40 mg tablet 40 mg PO DAILY #90 tab 03/29/18 10/19/18 lamotrigine 100 mg tablet 100 mg PO DAILY 05/01/18 10/19/18 sertraline 100 mg tablet 100 mg PO DAILY 05/01/18 10/19/18 amlodipine 10 mg tablet 10 mg PO BID #90 tab-cap MDD 20 07/11/18 10/19/18 metoprolol tartrate 50 mg tablet 50 mg PO BID #180 tab-cap 09/25/18 10/19/18 cephalexin 500 mg PO QID 7 Days #28 tab 10/18/18 10/19/18 potassium chloride 20 meq PO DAILY #4 tab 10/18/18 10/19/18 Previous Rx's Medication Instructions Recorded ibuprofen 600 mg PO Q6H PRN #12 tab 10/25/16 Naphcon-A 2 drp OPHTHALMIC TID #1 bottle 10/31/17 atorvastatin 20 mg tablet 20 mg PO DAILY #90 tab 01/31/18 lisinopril 40 mg tablet 40 mg PO DAILY #90 tab 03/29/18 amlodipine 10 mg tablet 10 mg PO BID #90 tab-cap MDD 20 07/11/18 metoprolol tartrate 50 mg tablet 50 mg PO BID #180 tab-cap 09/25/18 cephalexin 500 mg PO QID 7 Days #28 tab 10/18/18 potassium chloride 20 meq PO DAILY #4 tab 10/18/18 Allergies Allergy/AdvReac Type Severity Reaction Status Date / Time No Known Allergies Allergy Unverified 10/19/18 14:48 General Stated Complaint: Recheck EYAD: 5 Review of Systems Constitutional Reports as per HPI, Denies chills, Denies fever(s), Denies headache(s) and Denies weakness ENT Denies headache(s) Cardiovascular Reports as per HPI and Denies chest pain Respiratory Reports as per HPI and Denies cough Musculoskeletal Reports as per HPI and Denies tingling Integumentary/Breasts Reports as per HPI and Reports erythema (known cellulitis LLE) Neurologic Reports as per HPI, Denies headache(s), Denies tingling, Denies paresthesias and Denies weakness [facility] Social History Smoking/Tobacco Use Status: Never Alcohol Intake: never Drug use: Never Substance use type: does not use Household members: family Housing: house Pets and animals: Yes Pets and animals: dog(s) Sexually active: No Do you think of yourself as: straight/heterosexual Duration: < 15 minutes/day Frequency: 1-2 times per week Opal/Latter Day: No preference Special opal needs: No Do you feel safe at home: Yes Do you feel safe in your relationship?: Yes Exam Const General: cooperative, healthy appearing, comfortable, no acute distress, well developed and well groomed Nutritional Appearance: well nourished and overweight Orientation: alert and awake Resp Effort & Inspection: normal respiratory effort, able to speak in complete sentences and no respiratory distress Cardio Rate: regular rate Rhythm: regular rhythm Skin General skin exam: erythema (LLE, significantly reduced from marking placed yesterday) Neuro General: alert and awake Cognition: normal cognition Speech: speech normal Gait: normal gait Motor: muscle tone normal throughout Sensory Exam: no sensory deficits noted Extrem General: abnormal to inspection (erythema as above), full ROM, normal capillary refill and no joint enlargement Left lower extremity: full ROM, normal capillary refill and lower leg Details: erythema Location: of the proximal lower leg; no tenderness, no localized swelling, no palpable cords and no pitting edema Psych Appearance: grossly normal and well kempt Mental Status: mental status grossly normal Speech and Movement: speech and movement normal Course Vital Signs Temperature 37.3 C 10/19/18 14:43 Pulse 77 10/19/18 14:43 Respiratory Rate 15 10/19/18 14:43 Blood Pressure 130/72 10/19/18 14:43 Pulse Oximetry 95 10/19/18 14:43 Temperature 37.3 C 10/19/18 14:43 Temperature Source Oral 10/19/18 14:43 Pulse 77 10/19/18 14:43 Respiratory Rate 15 10/19/18 14:43 Respiratory Effort Non-Labored 10/19/18 14:47 Blood Pressure 130/72 10/19/18 14:43 Blood Pressure Position Sitting 10/19/18 14:43 Pulse Oximetry 95 10/19/18 14:43 Oxygen Delivery Method Room Air 10/19/18 14:43 Oxygen Flow Rate 0 10/19/18 14:43 Pain Level 5 10/19/18 14:43
== END 2018-10-19 15:28 | disposition home or self-care (01) ==
PROVIDERS: Emergency Provider Physician Assistant; PCP Internal Medicine
DX: L03.116 Cellulitis of left lower limb (principal)
CPT/HCPCS: 99282

== ENCOUNTER 2018-10-26 08:15 | Outpatient (CLI) | payer OTHER, SELFPAY ==
[2018-10-26 11:07] LABS: Abs Immature Grans 0.15 k/cumm (0.0-0.09); Absolute Basophil Count 0.02 k/cumm (0.0-0.2); Absolute Lymphocyte Count 1.53 k/cumm (1.2-3.4); Absolute Neutrophil Count 5.59 k/cumm (1.2-6.7); Basophils % 0.3; Eosinophils % 2.5; HCT 40.9 % (40.0-50.0); Immature Grans % 1.9; Lymphocytes % 19.1; Mean Corp. HGB Concentration 34.2 g/dL (32.0-36.0); Mean Corpuscular Hemoglobin 29.9 pg (27.0-33.0); Mean Corpuscular Volume 87.2 fL (80-95); Mean Platelet Volume 10.4 fL (8.0-11.0); Monocytes % 6.3; Neutrophils % 69.9; Platelet Count 212 x1000/uL (130-400); RBC 4.69 m/cumm (4.50-6.00); RBC Distribution Width 13.2 % (11.8-14.1); White Blood Cell Count 7.99 k/cumm (4.4-10.8)
[2018-10-26 11:19] LABS: ALT 58 U/L (12-78); AST 49 U/L (15-37); Alkaline Phosphatase 147 U/L (46-116); Anion Gap 12.5 mmol/L (3-11); BUN 18 mg/dL (7-18); Bilirubin, Total 0.6 mg/dL (0.2-1.0); CO2 26.5 mmol/L (21.0-32.0); CREATININE 1.35 mg/dL (0.70-1.30); Calcium 8.9 mg/dL (8.5-10.1); Chloride 106 mmol/L (98-107); Estimated GFR 57.41 (mL/min/1.73m2); Glucose 135 mg/dL (70-100); Potassium 3.7 mmol/L (3.5-5.1); Sodium 145 mmol/L (136-145)
== END 2018-10-26 08:35 ==
PROVIDERS: PCP Internal Medicine; Visit Provider Internal Medicine
DX: L03.116 Cellulitis of left lower limb (principal)
CPT/HCPCS: 36415; 80053; 85025

== ENCOUNTER 2019-03-18 10:38 | Emergency (ER) | payer OTHER, SELFPAY ==
[2019-03-18 10:44] VITALS: BP 145/86; PULSE 83; RESP 16; TEMP 36.7; O2SAT 98
--- NOTE | 2019-03-18 10:58 | W.ED.GENAD ---
Discharge Plan Disposition Patient Disposition: HOME Condition: Stable Discharge Details Chief Complaint: Sorethroat Clinical Impression: Acute streptococcal pharyngitis Primary Care Provider: Mariya Holm ED Provider: Maye Tenorio Home Meds and New Rx's Prescriptions: New amoxicillin 500 mg tablet 500 mg PO BID 10 Days Qty: 20 RF: 0 Continued sertraline 100 mg tablet 100 mg PO DAILY RF: 0 lamotrigine 100 mg tablet 100 mg PO DAILY RF: 0 betamethasone dipropionate 0.05 % cream 1 applic TP BID PRN (Reason: skin irritation) Qty: 45 RF: 1 aspirin 81 MG tablet,chewable 81 mg PO DAILY RF: 0 lisinopril 40 mg tablet 40 mg PO DAILY Qty: 90 RF: 4 metoprolol tartrate 50 mg tablet 50 mg PO BID Qty: 180 RF: 3 atorvastatin 20 mg tablet 20 mg PO DAILY Qty: 90 RF: 3 amlodipine 10 mg tablet 10 mg PO BID MDD 20 Qty: 90 RF: 4 omega-3 fatty acids-fish oil 1 EACH capsule 500 mg PO BID RF: 0 ibuprofen 600 MG tablet 600 mg PO Q6H PRN (Reason: Pain) Qty: 12 RF: 0 Discharge Instructions Instructions: Pharyngitis (ED) Additional Instructions: Alternate Tylenol and Motrin as needed and directed for pain. Take the antibiotics until finished. Follow-up with primary care doctor within the next week for reevaluation. Return to the emergency department if you develop any worsening or new concerning symptoms. Discharge Data Discharge Date/Time-TO BE ENTERED AT DEPARTURE: 03/18/19 11:08 Discharge Physician: Maye Tenorio Medical Decision Making 43-year-old male presents with sore throat for 2 days. BP mildly hypertensive. Afebrile. Patient appears nontoxic but mildly uncomfortable. Bilateral tonsillar edema and erythema and uvular edema. Uvula is midline. No drooling, trismus or submandibular swelling. Airway intact. Rapid strep positive. Patient offered Bicillin injection but declines and would rather prescription for antibiotics. Given a dose of Decadron for tonsillar and uvular edema. Advised to drink plenty of fluids, alternate Tylenol and Motrin, follow-up with his primary care doctor for reevaluation and to return here with any concerns. HPI General Mode of arrival: ambulatory. Date/Time Provider Initiated Documentation: 03/18/19 10:53. Limitations to Documentation: no limitations. Information obtained by: patient. History of Present Illness 43 year old M presents to the emergency department with the chief complaint of sore throat, Patient started experiencing this day(s) (2) and it has been constant. No relieving factors improve symptom(s), No exacerbating factors reported . Patient notes denies confusion, chest pain, cough, diaphoresis, fever/chills, headaches, loss of appetite, malaise, nausea/vomiting, rash, seizure, shortness of breath, syncope and weakness. Patient did receive the following treatments prior to arrival, none Related Data Home Medications Medication Instructions Recorded Confirmed aspirin 81 mg PO DAILY tab-cap 02/02/16 03/18/19 omega-3 fatty acids-fish oil 500 mg PO BID 08/09/16 03/18/19 ibuprofen 600 mg PO Q6H PRN #12 tab 10/25/16 03/18/19 lisinopril 40 mg tablet 40 mg PO DAILY #90 tab 03/29/18 03/18/19 lamotrigine 100 mg tablet 100 mg PO DAILY 05/01/18 03/18/19 sertraline 100 mg tablet 100 mg PO DAILY 05/01/18 03/18/19 metoprolol tartrate 50 mg tablet 50 mg PO BID #180 tab-cap 09/25/18 03/18/19 betamethasone dipropionate 0.05 % 1 applic TP BID PRN #45 gm 11/01/18 03/18/19 topical cream atorvastatin 20 mg tablet 20 mg PO DAILY #90 tab 02/02/19 03/18/19 amlodipine 10 mg tablet 10 mg PO BID #90 tab-cap MDD 20 02/26/19 03/18/19 amoxicillin 500 mg PO BID 10 Days #20 tab 03/18/19 Previous Rx's Medication Instructions Recorded ibuprofen 600 mg PO Q6H PRN #12 tab 10/25/16 lisinopril 40 mg tablet 40 mg PO DAILY #90 tab 03/29/18 metoprolol tartrate 50 mg tablet 50 mg PO BID #180 tab-cap 09/25/18 betamethasone dipropionate 0.05 % 1 applic TP BID PRN #45 gm 11/01/18 topical cream atorvastatin 20 mg tablet 20 mg PO DAILY #90 tab 02/02/19 amlodipine 10 mg tablet 10 mg PO BID #90 tab-cap MDD 20 02/26/19 amoxicillin 500 mg PO BID 10 Days #20 tab 03/18/19 Allergies Allergy/AdvReac Type Severity Reaction Status Date / Time No Known Allergies Allergy Unverified 03/18/19 10:46 General Stated Complaint: Sorethroat EYAD: 4 Review of Systems All systems reviewed & are unremarkable except as noted in HPI and below Constitutional Constitutional: Reports as per HPI, Denies chills and Denies fever(s) Eyes Eyes: Denies blurry vision ENT Ears, Nose, Mouth, and Throat: Denies dizziness, Reports sore throat and Denies throat swelling Cardiovascular Cardiovascular: Denies chest pain and Denies dyspnea Respiratory Respiratory: Denies cough and Denies dyspnea Gastrointestinal Gastrointestinal: Denies abdominal pain, Denies diarrhea and Denies vomiting Genitourinary Genitourinary: Denies hematuria and Denies dysuria Musculoskeletal Musculoskeletal: Denies back pain and Denies numbness Integumentary/Breasts Skin/Breast: Denies lesions and Denies rash Neurologic Neurologic: Denies dizziness, Denies focal weakness and Denies numbness Allergic/Immunologic Allergic/Immunologic: Denies throat swelling [facility] Medical History Essential hypertension (Inactive) Hemorrhagic stroke (Acute) Migraine (Inactive) Obesity (Chronic) Obstructive sleep apnea (Inactive 05/02/17) Surgical History History of brain surgery (Acute) Family History Mother Hyperlipidemia Father No problems noted. Sister No problems noted. Son Depression Social History Smoking/Tobacco Use Status: Never Alcohol Intake: never Drug use: Never Substance use type: does not use Household members: family Housing: house Pets and animals: Yes Pets and animals: dog(s) Sexually active: No Do you think of yourself as: straight/heterosexual Duration: < 15 minutes/day Frequency: 1-2 times per week Opal/Yarsanism: No preference Special opal needs: No Do you feel safe at home: Yes Do you feel safe in your relationship?: Yes Exam Const General: cooperative and healthy appearing Orientation: alert and awake HENIA Head: normal to inspection Ears: hearing grossly normal bilaterally, external ears normal and TM's normal bilaterally General nose exam: external nose normal Face and sinus: normal facial exam Mouth: oral mucosae normal Teeth and gingiva: dentition normal Throat: uvula midline, no peritonsillar masses, posterior oropharynx abnormal edema, erythema and exudates and uvular edema Eyes General: appearance normal, both eyes and all related structures Eyelids: eyelids normal Pupils: PERRL EOM: EOM intact bilaterally Neck Neck: normal visual inspection Lymphatic: no lymphadenopathy noted Chest Chest: normal inspection of the chest Resp Effort & Inspection: normal respiratory effort and able to speak in complete sentences Auscultation: clear to auscultation bilaterally Cardio Rate: regular rate Rhythm: regular rhythm Skin General skin exam: no rashes or lesions noted Neuro General: alert and awake Cognition: normal cognition Speech: speech normal Gait: normal gait Motor: muscle tone normal throughout Sensory Exam: no sensory deficits noted Extrem General: normal to inspection, full ROM and normal capillary refill Psych Appearance: grossly normal Mental Status: mental status grossly normal Speech and Movement: speech and movement normal Affect: normal affect Thought Process: normal Course Vital Signs Vital signs: Vital Signs Temperature 98.1 F 03/18/19 10:44 Pulse 83 03/18/19 10:44 Respiratory Rate 16 03/18/19 10:44 Blood Pressure 145/86 H 03/18/19 10:44 Pulse Oximetry 98 03/18/19 10:44 Temperature 98.1 F 03/18/19 10:44 Temperature Source Skin 03/18/19 10:44 Pulse 83 03/18/19 10:44 Respiratory Rate 16 03/18/19 10:44 Respiratory Effort Non-Labored 03/18/19 10:44 Blood Pressure 145/86 H 03/18/19 10:44 Blood Pressure Position Sitting 03/18/19 10:44 Pulse Oximetry 98 03/18/19 10:44 Oxygen Delivery Method Room Air 03/18/19 10:44 Oxygen Flow Rate 0 03/18/19 10:44 Pain Level 7 03/18/19 10:44 Lab/Test Results Lab/Test Results: POC Strep Test-CLAY(Rapid) Start: 03/18/19 10:44 Freq: .Rapid Strep Test Status: Active Protocol: Document 03/18/19 10:48 SGL (Rec: 03/18/19 10:48 SGL [id number]) Strep test-CLAY(Rapid)-POC POC-Strep test-CLAY (Rapid) Positive POC-Strep test-CLAY (Rapid) Positive
[2019-03-18] MEDS: Dexamethasone 10 MG/ML VIAL PO (11:02)
== END 2019-03-18 11:08 | disposition home or self-care (01) ==
PROVIDERS: Emergency Provider Physician Assistant; PCP Internal Medicine
DX: J02.0 Streptococcal pharyngitis (principal); I10 Essential (primary) hypertension
CPT/HCPCS: 87880; 99283; J1100